=== PATIENT | female | born 1975 | race Caucasian/White ===

== ENCOUNTER 2022-03-13 06:49 | Day surgery (SDC) | payer OTHER ==
[~2022-03-13] VITALS: Ht 162.6 cm; Wt 49.9 kg
[2022-03-13] MEDS ORDERED: MIDAZOLAM 2 MG/2 ML VIAL ONE (07:40)
[2022-03-13] MEDS ORDERED: fentaNYL citrate 0.05 MG/ML VIAL ONE (07:40)
[2022-03-13] MEDS ORDERED: LIDOCAINE 2% 100 MG/5 ML UJET TP ONE (07:41)
[2022-03-13] MEDS ORDERED: MIDAZOLAM 2 MG/2 ML VIAL IVP ONE (10:20)
[2022-03-13] MEDS ORDERED: fentaNYL citrate 0.05 MG/ML VIAL IVP ONE (10:20)
== END 2022-03-13 09:25 | disposition home or self-care (01) ==
LOC: MOR 06:49 → MMU 06:49 → MOR 09:25
PROVIDERS: ATTEND Internal Medicine Gastroenterology
DX: R19.7 Diarrhea, unspecified (principal); K57.30 Diverticulosis of large intestine without perforation or abscess without bleeding; E78.00 Pure hypercholesterolemia, unspecified; E11.9 Type 2 diabetes mellitus without complications; K29.70 Gastritis, unspecified, without bleeding; Z98.82 Breast implant status; Z79.899 Other long term (current) drug therapy
CPT/HCPCS: 36415; 43239; 45380; 86677; 87426; 88305; J2250; J3010